=== PATIENT | female | born 1990 | race Caucasian/White ===

== ENCOUNTER 2020-09-10 14:35 | Inpatient (IN) | payer BC ==
[~2020-09-10 14:35] MED LIST: Iopamidol 370 76% 100 ML VIAL ONE
[2020-09-10] MEDS ORDERED: Calcium Carbonate 500 MG ChewTAB PO PRN (15:43)
[2020-09-10] MEDS ORDERED: Acetaminophen 500 MG TAB PO PRN (15:43)
[2020-09-10] MEDS ORDERED: Ondansetron ODT 4 MG TAB PO PRN (15:43)
[2020-09-10] MEDS ORDERED: diphenhydrAMINE 25 MG CAP PO PRN (15:43)
[2020-09-10] MEDS ORDERED: cloNIDine 0.1 MG TAB PO PRN (15:43)
[2020-09-10] MEDS ORDERED: Acetaminophen 650 MG Suppository PR PRN (15:43)
[2020-09-10] MEDS ORDERED: Guaifenesin DM 100-10/5 ML UDCUP PO PRN (15:43)
[2020-09-10] MEDS ORDERED: Eucerin (Mineral Oil/Petrolatum,White) 30 gm Jar TOP PRN (15:43)
[2020-09-10] MEDS ORDERED: Acetaminophen 325 MG TAB PO PRN (15:43)
[2020-09-10] MEDS ORDERED: Cepastat Lozenges 1 LOZ PO PRN (15:43)
[2020-09-10] MEDS ORDERED: Artificial Tear Sol 15 ML BOT EA EYE PRN (15:43)
[2020-09-10] MEDS ORDERED: Loperamide HCl 2 MG CAP PO PRN ×4 (15:43)
[2020-09-10] MEDS ORDERED: Ondansetron PF 4 MG/2 ML Vial IVP PRN (15:43)
[2020-09-10] MEDS ORDERED: Sodium Chloride 0.65% Nasal 44 ML BOT EA NARE PRN (15:43)
[2020-09-10 16:09] VITALS: BMI 40.5
[2020-09-10 18:16] LABS: #Basophils 0.1 thou/uL (0.0-0.2); #Eosinphils 0.2 thou/uL (0.0-0.7); #Lymphocytes 4.4 thou/uL (1.20-3.40); #Monocytes 1.1 thou/uL (0.11-0.59); #Neutrophils 5.3 thou/uL (1.40-6.50); %Basophils 0.9 % (0.0-1.0); %Eosinophils 2.2 % (0.0-10.0); %Lymphocytes 39.2 % (21.0-51.0); %Monocytes 10.2 % (0.0-10.0); %Neutrophils 47.5 % (42.0-75.0); Hemoglobin 13.3 g/dL (12.0-16.0); Mean Corpuscular HGB CONC 31.3 g/dL (32.0-36.0); Mean Corpuscular Hemoglobin 29.5 pg (27.0-31.0); Mean Corpuscular Volume 94.3 fL (78.0-98.0); Platelet Count 204 thou/uL (130-400); RBC Distribution Width 11.5 % (11.5-14.5); Red Blood Cell (RBC) Count 4.51 mill/uL (4.20-5.40); White Blood Cell (WBC) Count 11.2 thou/uL (4.8-10.8)
[2020-09-10] MEDS ORDERED: Sodium Chloride 0.9% 10 ML ONE ×3 (18:29→20:07)
[2020-09-10 18:31] LABS: ALT (SGPT) 31 U/L (8-55); AST (SGOT) 25 U/L (5-34); Albumin 3.9 g/dL (3.5-5.0); Alkaline Phosphatase 63 U/L (40-110); Anion Gap 14 mmol/L (10-20); BUN (Urea Nitrogen) 7 mg/dL (7.0-18.7); Bilirubin, Total 0.3 mg/dL (0.2-1.2); Calc. Creatinine Clearance 204 mL/min (70-130); Calcium 8.4 mg/dL (7.8-10.44); Carbon Dioxide 24 mmol/L (22-29); Chloride 104 mmol/L (98-107); Glucose 89 mg/dL (70-105); Potassium 3.4 mmol/L (3.5-5.1); Protein, Total 6.9 g/dL (6.0-8.3); Sodium 139 mmol/L (136-145)
[2020-09-10] MEDS ORDERED: HYDROcodone/Acetaminophen 5/325 mg Tablet PO PRN (19:41)
[2020-09-10 20:07] LABS: Pregnancy Test - Urine (BHCG) Negative (Negative); Pregu Control Background? CLEAR/WHITE (CLR/WHITE); Pregu Control Bar Appear? YES (CONTROL BAR); Specific Gravity 1.016 (1.002-1.036)
[2020-09-10 20:55] LABS: SARS-CoV-2 NAA Rapid Test Not Detected (NotDetected)
[2020-09-10] MEDS ORDERED: Bupropion 150 MG XL TAB PO SCH (21:00)
[2020-09-10] MEDS: Sodium Chloride 0.9% 1,000 ML IV SCH (21:00)
[2020-09-10] MEDS ORDERED: Topiramate 25 MG TAB PO SCH (21:00)
[2020-09-10] MEDS ORDERED: Pramipexole Di-HCl 0.25 MG TAB PO SCH (21:00)
[2020-09-10] MEDS ORDERED: Escitalopram Oxalate 20 mg Tablet PO SCH (21:00)
[2020-09-10] MEDS: Famotidine 20 MG TAB PO SCH (21:59)
[2020-09-10] MEDS ORDERED: Topiramate 100 MG TAB PO SCH (23:00)
[2020-09-10] MEDS: Promethazine HCl 12.5 MG in Sodium Chloride 0.9% 100 ML IVPB PRN (23:11)
[2020-09-11] MEDS: HYDROcodone/Acetaminophen 10/325 mg Tablet PO PRN ×2 (02:00→09:18)
[2020-09-11] MEDS: diphenhydrAMINE 50 MG/ML VIAL IVP SCH ×2 (02:01→09:11)
[2020-09-11] MEDS: Sodium Chloride 0.9% 1,000 ML IV SCH (05:19)
[2020-09-11] MEDS ORDERED: Levothyroxine Sodium 25 MCG TAB PO SCH (06:00)
[2020-09-11] MEDS ORDERED: Levothyroxine Sodium 112 MCG TAB PO SCH (06:00)
[2020-09-11] MEDS: Promethazine HCl 12.5 MG in Sodium Chloride 0.9% 100 ML IVPB PRN (06:30)
[2020-09-11] MEDS ORDERED: Non-Formulary Item 1 EACH (Levothyroxine Sodium [Levothyroxine Sodium] 137 MCG Tablet) PO SCH (09:00)
[2020-09-11] MEDS: Famotidine 20 MG TAB PO SCH (09:16)
[2020-09-11] MEDS ORDERED: Sodium Chloride 0.9% 10 ML ONE (09:17)
[2020-09-11 14:55] VITALS: BP 136/89; TEMP 97.9
== END 2020-09-11 15:05 | disposition home or self-care (01) | DRG 202 ==
LOC: NAV ACUTE 15:23 → UNDOADMIN 15:23
PROVIDERS: ADMIT Family Medicine; ATTEND Family Medicine
DX: J21.9 Acute bronchiolitis, unspecified (principal); Z68.41 Body mass index [BMI] 40.0-44.9, adult; E66.01 Morbid (severe) obesity due to excess calories; Z20.822 Contact with and (suspected) exposure to COVID-19; M54.9 Dorsalgia, unspecified; K76.0 Fatty (change of) liver, not elsewhere classified
CPT/HCPCS: 0240U; 71260; 80053; 81025; 85025; J1200; J2405; J2550; J3490; J7050; Q0163; Q9967

== ENCOUNTER 2023-06-03 16:14 | Outpatient (CLI) | payer BC | END 2023-06-03 16:15 | disposition home or self-care (01) | LOC: NAV RAD 16:14 | PROVIDERS: ATTEND Family Medicine | DX: J18.9 Pneumonia, unspecified organism (principal); R91.8 Other nonspecific abnormal finding of lung field | CPT/HCPCS: 71046 ==

== ENCOUNTER 2023-09-01 04:30 | Emergency (ER) | payer SELFPAY ==
[2023-09-01 05:04] LABS: #Basophils 0.1 thou/uL (0.0-0.2); #Eosinphils 0.2 thou/uL (0.0-0.7); #Lymphocytes 3.7 thou/uL (1.20-3.40); #Monocytes 0.7 thou/uL (0.11-0.59); #Neutrophils 4.1 thou/uL (1.40-6.50); %Basophils 1.1 % (0.0-1.0); %Eosinophils 1.9 % (0.0-10.0); %Lymphocytes 42.5 % (21.0-51.0); %Monocytes 7.5 % (0.0-10.0); %Neutrophils 47.1 % (42.0-75.0); Hematocrit 38.6 % (36.0-47.0); Hemoglobin 12.9 g/dL (12.0-16.0); Mean Corpuscular HGB CONC 33.3 g/dL (32.0-36.0); Mean Corpuscular Hemoglobin 29.2 pg (27.0-31.0); Mean Corpuscular Volume 87.5 fl (78.0-98.0); Mean Platelet Volume 5.8 fL (7.4-10.4); Platelet Count 245 10x3/uL (130-400); Red Blood Cell (RBC) Count 4.42 mill/uL (4.20-5.40); White Blood Cell (WBC) Count 8.8 10x3/uL (4.8-10.8)
[2023-09-01 05:13] LABS: Troponin I Less than 0.010 ng/mL (< 0.028)
[2023-09-01 05:14] LABS: ALT (SGPT) 73 U/L (8-55); AST (SGOT) 65 U/L (5-34); Albumin 4.3 g/dL (3.5-5.0); Alkaline Phosphatase 81 U/L (40-110); Anion Gap 16 mmol/L (10-20); BUN (Urea Nitrogen) 8 mg/dL (7.0-18.7); Bilirubin, Total 0.4 mg/dL (0.2-1.2); Calc. Creatinine Clearance 0 mL/min (70-130); Calcium 9.1 mg/dL (7.8-10.44); Carbon Dioxide 21 mmol/L (22-29); Chloride 106 mmol/L (98-107); Estimated GFR 101; Globulin 3.2 g/dL (2.4-3.5); Glucose 156 mg/dL (70-105); Lipase 33 U/L (8-78); Potassium 3.9 mmol/L (3.5-5.1); Protein, Total 7.5 g/dL (6.0-8.3); Sodium 139 mmol/L (136-145)
[2023-09-01] MEDS ORDERED: Ibuprofen 200 MG TAB ONE (05:45)
== END 2023-09-01 06:16 | disposition home or self-care (01) ==
LOC: NAV ERS 04:30
DX: R07.9 Chest pain, unspecified (principal); F17.290 Nicotine dependence, other tobacco product, uncomplicated; I10 Essential (primary) hypertension; E03.9 Hypothyroidism, unspecified; Z79.899 Other long term (current) drug therapy
CPT/HCPCS: 71046; 80053; 83690; 84484; 85025; 85379; 93005